=== PATIENT | male | born 1965 | race Caucasian/White ===

== ENCOUNTER 2016-07-11 14:26 | Emergency (ER) | payer OTHER ==
[2016-07-11] MEDS ORDERED: LIDOCAINE 1% 10 ML VIAL INJ ONE (15:21)
[2016-07-11] MEDS ORDERED: SULFA/TRIMETH 800/160 (DS) TAB 1 EA TAB PO ONE (15:40)
[2016-07-11] MEDS ORDERED: TETANUS,DIPHTHERIA,PERTUSSIS 1 EA SYG IM ONE (15:40)
--- NOTE | 2016-07-11 15:43 | ED.PDOC ---
History of Present Illness - General Chief Complaint: Laceration Time Seen by Provider: 07/11/16 15:39 Source: patient Exam Limitations: no limitations - History of Present Illness Initial Comments: the patient is a 51-year-old male at workrk at the [employer] and he ran the left hand over the band saw. he sustained lacerations over the proximal interphalangeal joints of the left hand. Cuts do not extend into the joints themselves. He is neurovascularly preserved. tendon function is preserved. Estimated blood loss 5 cc. Laceration over the third digit is 2 cm in length and over the second digit is 1.5 cm in length. No other injuries. Timing/Duration: momentarily Severity: mild Improving Factors: immobilization Worsening Factors: movement Associated Symptoms: denies symptoms Home Medications: Ambulatory Orders Sulfamethoxazole-Trimethoprim [Bactrim Ds 800-160 mg] 1 tab PO BID #10 tab 07/11 Review of Systems - Review of Systems Constitutional: States: no symptoms reported EENTM: States: no symptoms reported Respiratory: States: no symptoms reported Cardiology: States: no symptoms reported Gastrointestinal/Abdominal: States: no symptoms reported Genitourinary: States: no symptoms reported Musculoskeletal: States: no symptoms reported Skin: States: see HPI Neurological: States: no symptoms reported Endocrine: States: no symptoms reported All other Systems: No Change from Baseline Physical Exam - Physical Exam General Appearance: Alert, Comfortable, No apparent distress Eye Exam: bilateral normal Ears, Nose, Throat: normal pharynx Neck: full range of motion, supple Respiratory: lungs clear, normal breath sounds, no respiratory distress Cardiovascular/Chest: normal peripheral pulses, no edema Peripheral Pulses: radial,right: 2+, radial,left: 2+ Rectal Exam: deferred Extremity: normal range of motion, no pedal edema, no calf tenderness, normal capillary refill Neurologic: insecticide sprayer II-XII nml as tested, no motor/sensory deficits, alert, normal mood/affect, oriented x 3 Skin Exam: normal color - with the exception of the lacerations as described above. Progress - Progress Progress: 07/11/16 15:44 the patient is a 51-year-old male with lacerations over the proximal interphalangeal joints of the left hand. Risk and benefits are explained of the repair. He does agree to proceed. wounds are cleaned with peroxide. Exploration shows no extension into the joint spaces and no tendon laceration. He is neurovascularly preserved distally both before and after the procedure. Lidocaine without epinephrine 2 cc was used for local anesthetic. 3 simple sutures of 4-0 Ethilon were used on the third digit and 2 on the second digit. Good hemostasis obtained. The patient is given a tetanus shot and a dose of Bactrim. He will be on Bactrim for 5 days. He needs to avoid flexing the fingers. Monitor for infection. Sutures need to come out in 10 days. Departure - Departure Clinical Impression: Accidental laceration Disposition: Discharge to Home or Self Care Condition: Fair Departure Forms: ED Discharge - Pt. Copy, Patient Portal Self Enrollment Instructions: DI for Laceration Repair -- Simple Diet: regular diet Activity: increase activity as tolerated Prescriptions: Sulfamethoxazole-Trimethoprim [Bactrim Ds 800-160 mg] 1 tab PO BID #10 tab Home Medications: Ambulatory Orders Sulfamethoxazole-Trimethoprim [Bactrim Ds 800-160 mg] 1 tab PO BID #10 tab 07/11 Additional Instructions: the patient is a 51-year-old male with lacerations over the proximal interphalangeal joints of the left hand. Exploration shows no extension into the joint spaces and no tendon laceration. He is neurovascularly preserved distally both before and after the procedure. 3 simple sutures of 4-0 Ethilon were used on the third digit and 2 on the second digit. The patient is given a tetanus shot and a dose of Bactrim. He will be on Bactrim for 5 days. He needs to avoid flexing the fingers. Monitor for infection. Sutures need to come out in 10 days.
[2016-07-11 16:12] VITALS: BP 140/91; TEMP 98.8; O2SAT 94
== END 2016-07-11 16:05 | disposition home or self-care (01) ==
LOC: ER 14:26
DX: S61.218A Laceration without foreign body of other finger without damage to nail, initial encounter (principal); Z23 Encounter for immunization; W29.8XXA Contact with other powered hand tools and household machinery, initial encounter; Y92.511 Restaurant or cafe as the place of occurrence of the external cause; Y99.0 Civilian activity done for income or pay